=== PATIENT | female | born 1955 | race Caucasian/White ===

== ENCOUNTER 2018-03-26 06:18 | Day surgery (SDC) | payer OTHER, SELFPAY ==
[2018-03-06 09:47] VITALS: BMI 21.4
[2018-03-26] VITALS (12 sets, daily range): BP systolic 92–138; BP diastolic 61–82; PULSE 62–86; RESP 12–18; TEMP 36.4–37.1; O2SAT 93–98; BMI 20.9
[2018-03-26] MEDS: ACETAMINOPHEN 325 MG TABLET 975 MG PO ×2 (07:10→14:02)
[2018-03-26] MEDS: CELECOXIB 200 MG CAPSULE PO (07:11)
[2018-03-26] MEDS: PREGABALIN 75 MG CAPSULE PO (07:11)
[2018-03-26] MEDS: LACTATED RINGERS 1,000 ML 42 ML IV ×2 (07:15→09:09)
--- NOTE | 2018-03-26 07:36 | PM.PREOP ---
Pre-operative Note Interval Note Pre-op Check: Yes History & Physical Reviewed by Physician and Yes Exam Performed Changes: No
--- NOTE | 2018-03-26 07:38 | P.OP_ITS ---
Operative Date/Time/Diagnoses Date of procedure: 03/26/18 Time of procedure: 09:30 Pre-op diagnosis: Right knee osteoarthritis Post-op diagnosis: same Procedure & Clinicians Procedure: Right total knee replacement Same procedure as scheduled: Yes Indications: The patient has had progressively worsening right knee pain with radiographic changes consistent with arthritis. Non-operative management has failed and the patient has requested total knee replacement. The risks, benefits and alternatives to surgery were discussed with the patient prior to proceeding. Risks discussed included, but were not limited to, failure to relieve pain, stiffness, infection, nerve damage, deep venous thrombosis, pulmonary embolism, stroke, coma, heart attack, permanent paralysis and , as well as the potential need for eventual revision of the prosthetic. Surgeon: Zak Dunn Sales Center Manager: Ann Pina Click Yes if Unassisted: No Anesthesia Type: Spinal, Sedation, Peripheral nerve block and Local Operative Notes Findings: Severe medial osteoarthritis with significant patellofemoral change as well. Closure Type: primary Specimen(s): none sent Implants & Drains: Implants used in this procedure were manufactured by the [employer] and [employer] and included the BCS II Journey total knee replacement with a size 5 Oxinium right femoral component, a size 4 non porous tibial base plate, a 10 mm crosslink polyethylene BCS II insert and a 32 mm oval Darlene II patellar component. Applied: implant(s) Estimated Blood Loss (mL): 50 Blood products transfused: none Tourniquet time (min): 50 Procedure in detail: The patient was seen in the pre-operative area, where the patient identified the right knee as the operative site and this was marked with my initials. The patient received pre-operative antibiotics, and was taken to the operating room and placed on the operative table in the supine position. After satisfactory anesthesia, a flight crew time clerk out was performed. The right leg was encircled with a tourniquet about the proximal thigh, and the leg was prepared from the toes to the tourniquet with ChloroPrep in the usual fashion and draped through sterile drapes. The leg was elevated and exsanguinated with Eschmark bandage and the tourniquet inflated to 250 mmHg pressure. The knee was approached through an approximately 18 cm incision centered over the patella and carried into the knee through a medial parapatellar arthrotomy. The anterior osteophytes and soft tissues were removed. The rotational landmarks of Efraín's line and the transepicondylar axis were marked on the femur with electrocautery, and intramedullary guide holes for the femur and tibia were created. The distal femoral cut was made in 6 degrees of valgus using the intramedullary guide at the primary cut setting. The proximal tibial cut was then made using the intramedullary guide, taking 9 mm of bone off the less involved side. The extension gap was checked and the rotation of the femoral component confirmed with the gap balancing system. The anterior, posterior and chamfer cuts were then made. The posterior osteophytes and soft tissues were then removed. The posterior capsule was injected with part of a mixture of 50 ml 0.25% Marcaine mixed with 20 ml Exparel and 4 mg of morphine for post-operative pain control. The remainder of this mixture was injected into the capsule and subcutaneous tissues during cement curing. The tibia was prepared with the rotation set by an extra medullary guide. Trial tibial and femoral components were then placed and the intercondylar notch cut through the femoral trial. Range of motion was 0-135 degrees, with good stability throughout the range. The patella was then cut to accommodate the patellar prosthetic. There was no need for a lateral release. The trials were then removed, and the femoral hole plugged with a bone plug. The bone was prepared with pulsatile lavage, and dried with a sponge. Cement was applied and the final prosthetics placed. Excess cement was removed during and after cement curing. After confirming there was no extruded cement posteriorly, the final tibial insert was placed. The knee was copiously irrigated and the tourniquet deflated. Hemostasis was obtained. The capsule was closed with interrupted # 2 polyester suture. The subcutaneous layer was closed with 3-0 Vicryl, and the skin with a running 3-0 V-Lock suture and SteriStrips. An Aquacel Ag dressing was applied and the patient was taken to recovery having tolerated the procedure well. Complications: none Condition: stable Disposition: PACU Plan for aftercare: The patient will be maintained on a standard total knee replacement protocol with weight bearing as tolerated. The patient will receive aspirin and sequential compression devices for DVT prophylaxis. The patient will be discharged home when safe for the home environment.
[2018-03-26] MEDS: fentaNYL 100 MCG/2 ML INJ 50 MCG IV (07:44)
[2018-03-26] MEDS: MIDAZOLAM 2 MG/2 ML VIAL IV (07:44)
--- NOTE | 2018-03-26 07:55 | SUR.PREOP ---
Block start time [0744] . Monitoring initiated and maintained throughout procedure. Oxygen and medications given per anesthesiologist instructions. Patient remained stable throughout procedure, no adverse reactions noted. Block end time [0750]. PT TAKEN DIRECTLY INTO THE OR AFTER COMPLETION OF BLOCK. PT LEFT IN STABLE CONDITION, VSS AND TALKING TO RN.
[2018-03-26] MEDS: CLINDAMYCIN 900 MG/50 ML PIGGYBACK 50 MG IV ×2 (08:00→16:46)
--- NOTE | 2018-03-26 08:30 | SUR.OPER ---
Supine on padded OR bed. Pillow under head, arms secured on padded armboards <90 degree abduction. Safety belt across torso. Non-operative leg secured with tape over blanket over lower leg. Operative leg secured in DeMayo/Srinivasan positioner.
[2018-03-26] MEDS: BUPIVACAINE 0.25% W/ EPI VIAL 50 ML INJ (08:41)
[2018-03-26] MEDS: BUPIVACAINE LIPOSOME 266 MG/20 ML VIAL INJ (08:42)
[2018-03-26] MEDS: MORPHINE 4 MG/ML INJ IV (08:44)
[2018-03-26] MEDS: SODIUM CHLORIDE 0.9% FLUSH 30 ML IV (08:47)
--- NOTE | 2018-03-26 09:49 | DI.RAD.S_ITS ---
PROCEDURE: XR KNEE RT 1TO2V INDICATIONS: post op total knee TECHNIQUE: 2 view(s) of the knee acquired. [facility] XR KNEE ARTHRITIC SERIES LT, 12/13/2017, 15:47. FINDINGS: Bones: Patient is status post knee joint arthroplasty. Hardware components are in expected positions. Visualized bony structures are intact. Soft tissues: Overlying postoperative changes are noted. IMPRESSION: Acute postoperative changes of total right knee arthroplasty Dictated by: Rolando Tyson M.D. on 03/26/2018 at 10:22 Approved by: Rolando Tyson M.D. on 03/26/2018 at 10:23
--- NOTE | 2018-03-26 10:20 | SUR.PHASEI ---
Report called to Adrianne Leblanc RN
--- NOTE | 2018-03-26 10:23 | SUR.PHASEI ---
Pt transferred to the floor by MINO Michelle. Belongings bag with patient.
[2018-03-26] MEDS: LACTATED RINGERS 1,000 ML 125 ML IV (11:15)
--- NOTE | 2018-03-26 12:41 | PC.NURSE ---
Pt sitting up in bed after just finishing her lunch. Her spouse is resting on the window seat. Pt oriented to room, call light, bed controls and tv controls. Pt denies nausea, pain, or shortness of breath. Pt now has sensation to both feet and legs and is able to wiggle her toes.
--- NOTE | 2018-03-26 13:55 | PM.PNPO.1 ---
Subjective Interval history: Patient seen bedside s/p TKA POD #0. Spinal has worn off and pain is well controlled. She would like to go home today. Exam Vital Signs (past 8 hours): - 03/26/18 06:59 03/26/18 09:51 03/26/18 09:56 Temperature 98.8 F 97.6 F Pulse Rate 75 86 86 Respiratory Rate 16 15 17 Blood Pressure 123/82 H 92/61 104/63 Pulse Oximetry 97 94 93 03/26/18 10:02 03/26/18 10:06 03/26/18 10:17 Temperature Pulse Rate 80 77 67 Respiratory Rate 18 12 15 Blood Pressure 110/71 106/69 117/73 Pulse Oximetry 95 96 96 03/26/18 10:36 03/26/18 10:45 03/26/18 11:25 Temperature 97.8 F 97.8 F 97.8 F Pulse Rate 64 69 69 Respiratory Rate 16 16 16 Blood Pressure 120/74 109/63 116/71 Pulse Oximetry 98 98 97 03/26/18 12:25 03/26/18 13:44 Temperature 98.1 F 97.5 F L Pulse Rate 62 72 Respiratory Rate 16 16 Blood Pressure 122/80 H 122/72 H Pulse Oximetry 98 97 Oxygen Delivery Method Room Air Narrative Exam Narrative: WDWN NAD A&Ox3. Dressing is CDI, ROM of the ankle is intact, calf is soft and compressible. Assessment & Plan Post-op Postoperative Procedures Operation Date: 03/26/18 07:45 Actual Procedures Side Surgeon p Total Knee Arthroplasty Right Zak Dunn MD Patient will be seen by PT and if cleared, may go home. Follow up per [facility] appointments in the office. Time Spent With Patient less than 15 minutes Quality VTE Deep Vein Thrombosis/Pulmonary Embolism Present on Admission: No
[2018-03-26] MEDS: OXYCODONE IR 5 MG TABLET PO ×2 (14:01→15:54)
--- NOTE | 2018-03-26 15:20 | PT.IIE ---
Current Diagnoses Bilateral primary osteoarthritis of knee (03/26/18) Presence of left artificial knee joint (03/26/18) Surgery Performed Operation Date: 03/26/18 07:45 Actual Procedures p Total Knee Arthroplasty(Right) - Zak Dunn MD Surgical History (Last Updated 03/06/18 @ 10:00 by Theresa Gibson, RN) History of arthroplasty of left knee (Acute) Hx of colonoscopy (Acute) Hx of esophagogastroduodenoscopy (Acute) Hx of left mastectomy (Acute) Hx of tonsillectomy (Acute) Medical History (Last Updated 03/06/18 @ 10:17 by Theresa Gibson RN) Breast cancer, left (Acute) GI bleed due to NSAIDs (Acute) History of hysterectomy (Acute) Physical Therapy Inpatient Evaluation/Re-Eval M1 PT/OT-IP Prior Functional Status Start: 03/26/18 15:06 Freq: NEEDED Status: Active Protocol: Document 03/26/18 14:58 DLM (Rec: 03/26/18 15:16 DLM [id number]) Medical Review Prior Functional Status Medical History Reviewed Yes Diet/Fluid Consistency Regular Communication WNL Mobility and Gait Independent without device, active, community ambulation. Activities of Daily Living and IADL's Independent, drives Prior Functional Level (Other details) she likes to garden, volunteers for [employer] Social History Household Members spouse Living Arrangements House Number of Floors (Floors) One Floor Number of Stairs To Enter/Railing? 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 in October with good recovery M2 PT-IP Current Condition Start: 03/26/18 15:06 Freq: NEEDED Status: Active Protocol: Document 03/26/18 14:58 DLM (Rec: 03/26/18 15:16 DLM [id number]) Physical Therapy Current Condition Current Condition Evaluation Date 03/26/18 Treatment Diagnosis right TKA, impaired gait Onset Date 03/26/18 Weight Bearing Status Weight Bearing Status Weight Bear as Tolerated M3 PT-IP Subjective Start: 03/26/18 15:06 Freq: NEEDED Status: Active Protocol: Document 03/26/18 14:58 DLM (Rec: 03/26/18 15:16 DLM [id number]) Subjective Physical Therapy Visit Type Type Initial Evaluation Visit Start Time 14:30 Visit Stop Time 14:58 Total Visit Minutes 28 Number of LIFESTYLE COORDINATOR Visits 0 Physical Therapy Visit Comments Patient Comments she feels she can go home today, she has post-op ex at home from prior surgery Therapy Pain Assessment Pain When Pain Assessed During Mobility Pain Present Pain Present Pain Reported Location Right Knee Intensity 6 Scale Used Numeric (1 - 10) Description Aching Pain Management Techniques Apply Cold Elevation M4 PT-IP Mobility and Gait Start: 03/26/18 15:06 Freq: NEEDED Status: Active Protocol: Document 03/26/18 14:58 DL (Rec: 03/26/18 15:16 [facility] [id number]) PT-Bed Mobility Assessment Supine to Sit Supine to Sit Independent Sit to Supine Sit to Supine Independent Scooting Scooting to Edge of Bed Independent Scooting Up and Down in Bed Independent PT-Transfer Assessment Sit to and From Stand Sit to and from Stand Standby Assistance Use of Upper Extremities Equipment Transfer Assistive Device Gait Belt Front Wheeled Walker Transfers Transfer Destination Toilet Transfer Technique Stand Step Pivot Transfer Ability Level of Assist Standby Assistance Gait Assessment Gait Gait Assistance Required: Standby Assistance Distance (Feet) (feet) 120 Able to Maintain Weight Bearing Status Yes During Gait Assistive Devices Assistive Device Gait Belt Front Wheeled Walker Orthotic/Prosthetic Devices or Brace: No Gait Deviations General Gait Pattern Antalgic Factors Limiting Gait Function Factors Limiting Gait Function Decreased Strength Limited Range of Motion Pain Stair Climbing Assessment Evaluation Level of Assist On Stairs Standby Assistance Devices Stair Climbing Assistive Devices Left Railing Right Railing Technique/Endurance Stair Climbing Direction Ascend and Descend Stair Climbing Technique Step to Step Number of Steps Climbed 3 Query Text: Stair Climbing Set # Repetitions (reps) 1 PT-Balance Assessment Sitting Balance and Reactions Static Sitting Balance Ability Normal Dynamic Sitting Balance Ability Normal Standing Balance and Reactions Static Standing Balance Ability Good Dynamic Standing Balance Ability Good Device Used FWW M5 PT-IP Objective Assessments Start: 03/26/18 15:06 Freq: NEEDED Status: Active Protocol: Document 03/26/18 14:58 DL (Rec: 03/26/18 15:16 [facility] [id number]) Orientation Orientation/Cognition Level of Alertness Alert Orientation Name Age Birthday Month Date Year Day of Week Place Situation Language Function Ability No Deficits Noted Safety Awareness Understands Safety Issues Memory Description No Deficits Noted Gross Range of Motion Upper Extremity ROM Assessment Within Functional Limits Lower Extremity ROM Assessment Right Impaired Impairments 10-90 degrees Strength Upper Extremity Strength Assessment Within Functional Limits Lower Extremity Strength Assessment Right Impaired Hip hip flex 3+/5, able to lift LE off bed Knee knee ext seated 3-/5 Ankle DF 4+/5 Coordination Assessment Gross Coordination Gross Coordination WNL Sensation Assessment Sensation Gross Sensation Right LE Impaired Light Touch Impaired Proprioception (Position) Intact Sensation Description Numbness Comments Sensation Comments post-op numbness medial right knee area Muscle Tone Muscle Tone WNL Yes M6 PT-IP Treatment Start: 03/26/18 15:06 Freq: NEEDED Status: Active Protocol: Document 03/26/18 14:58 DLM (Rec: 03/26/18 15:16 DLM [id number]) Physical Therapy Treatment Exercises Exercises Ankle Pumps Quad Sets Heel Slides Straight Leg Raises Short Arc Quads Passive Knee Extension Hang Seated Knee Flexion/Extension Education Education Provided Precautions Weight Bearing Status Post-Op Packet Safety Equipment Issued Equipment Type and Company pt has her FWW from home M7 PT-IP Assessment and Plan Start: 03/26/18 15:06 Freq: NEEDED Status: Active Protocol: Document 03/26/18 14:58 DLM (Rec: 03/26/18 15:16 DLM [id number]) PT Summary Assessment and Plan Potential Rehabilitation Potential Excellent Status of Condition at Evaluation Evolving Summary Impairments Pain ROM Strength Balance Sensation Bed Mobility Transfers Gait Activity Tolerance Progress Towards Goals Safe For Discharge Assessment Summary She tolerated activity well this visit. No nausea and no light-headedness. She ambulates safely with the fWW and was able to get up and down steps. She has a supportive Spouse to assist her at home as needed. Pt able to urinate in the toilet this visit. She appears safe for discharge today when cleared medically. Frequency of Treatment Frequency Of Treatment Discharge Treatment Plan Other Recommendations and Next Treatment safe for discharge today Focus Recommendations To Nursing Amount of Assist Needed Standby Assistance Discharge Recommendations PT Discharge Recommendations Home with Assistance Outpatient PT
== END 2018-03-26 18:10 | disposition home or self-care (01) ==
LOC: OR 06:25 → AC 06:29
PROVIDERS: Visit Provider Orthopaedic Surgery
PROC: 0SRC0JZ Replacement of Right Knee Joint with Synthetic Substitute, Open Approach (ICD-10-PCS; CPT 27447; principal; 2018-03-26 07:45)
DX: M17.11 Unilateral primary osteoarthritis, right knee (principal); Z96.652 Presence of left artificial knee joint; G89.18 Other acute postprocedural pain
CPT/HCPCS: 27447; 64450; 73560; 97162; C1776; C9290; J2250; J2270; J2704; J3010